=== PATIENT | female | born 1960 | race Caucasian/White ===

== ENCOUNTER 2025-05-06 14:32 | Emergency (ER) | payer SELFPAY ==
[2025-05-06 14:38] VITALS: BP 132/75
--- NOTE | 2025-05-06 15:34 | ED.GENMED ---
History of Present Illness
General
Chief Complaint: Crisis Evaluation
Source: patient
Exam Limitations: none
Time Seen by Provider: 05/06/25 15:06
Nursing documentation reviewed up to this point in time: agreed with
History of Present Illness
History of Present Illness:
64-year-old female history of alcoholism presents via police apparently made gestures that she went to harm herself patient admits to being in alcohol rehab 3 times this year, second and reported that she attempted to jump out a window or down some
steps, she denies any suicidal thoughts to me, states she is not depressed, she is frustrated due to worsening alcohol use, not currently in any therapy, admits to drinking alcohol earlier today
Past History
Past History
ED Past Medical History: Hypercholesterolemia, Psychiatric (Anxiety and depression) and Other (h/o alcohol abuse)
ED Past Surgical History: (3 prior C-sections)
Social History
Tobacco: Smoker
Alcohol: Daily
Drug: None
Personal:
Living: with family
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
Family History
Family History: Other (n/c)
Review of Systems
Review of Systems
All Other Systems: Not applicable
EENT: Reports no symptoms
Respiratory: Reports no symptoms
Cardiac: Reports no symptoms
ABD/GI: Reports no symptoms
: Reports no symptoms
Psychiatric: Reports anxiety; Denies depression or hallucinations
Phy Exam
Physical Exam
Physical Exam:
Physical Exam
General: no apparent distress, not acutely ill
Neck: No jaundice
Heart: Regular
Lungs: no acute respiratory distress. clear bilaterally
Neuro: alert and oriented. no focal neurological deficits
Skin: no rash
Psychiatric: Cooperative, denies suicidal thoughts not hallucinating
Extremities: no edema
Course
Orders/Labs/Results
Orders:
Orders
05/06/25 14:46
Crisis Consult Urgent
Reason for Consult: increased depression
Vital Signs
Initial and Last Documented VS:
Initial Vital Signs
Temp Pulse Resp BP Pulse Ox
98.5 F 104 18 132/75 95
05/06/25 14:38 05/06/25 14:38 05/06/25 14:38 05/06/25 14:38 05/06/25 14:38
Last Documented Vital Signs
Temp Pulse Resp BP Pulse Ox
98.5 F 104 18 132/75 95
05/06/25 14:38 05/06/25 14:38 05/06/25 14:38 05/06/25 14:38 05/06/25 15:36
MDM/Problems Addressed
Differential Diagnosis Includes:
Alcoholism depression anxiety
MDM/Problems Addressed:
Depression anxiety question suicidal
Chronic conditions affecting care: Psychiatric illness
Acute Exacerbation and/or Progression of Chronic Illness: Psychiatric illness
*Pulse Oximetry
SaO2: 95
Oxygen Mode of Delivery: Room air
Patient hypoxic: no
*Critical Care Note
Total Time (30-74mins, 75-104mins- exclusive of procedures): Not Applicable
Update Note
Update Note:
Update 302 apparently was filled out by the will be effective through the delegate keep her in a safety hold in the meantime
5 PM update 302 not upheld patient would like to go home not interested in rehab
ED Attending Note
-
Portions of this chart may have been created with voice recognition software.� Occasional wrong word or��sound alike� substitutions may have occurred due to the inherent limitations of voice recognition software.
Discharge Plan
Departure
Patient Disposition: Home (Routine Discharge)
Date of Disposition: 05/06/25
Time of Disposition: 16:59
Patient with high blood pressure during this ER visit?: No
Condition: Good
Covid-19: Not Applicable
Discharge Problem:
Alcohol abuse
Instructions: Alcohol Use Disorder (DC), Drug and Alcohol Abuse Information
Prescriptions:
No Action
lisinopril 10 MG tablet
10 mg PO DAILY
alprazolam 0.5 MG tablet
0.5 mg PO Q6HPRN PRN (Reason: anxiety) Qty: 10 0RF
pantoprazole 40 mg tablet,delayed release (DR/EC)
40 mg PO DAILY Qty: 30 0RF
Referrals:
UNKNOWN - PT NOT,INTERVIEWE [Family Provider]
Interventions
Interventions:
*Risk Screen - Suicide Last Done: 05/06/25 14:38
*General Assessment Last Done: 05/06/25 14:38
*Neglect/Abuse Screening Last Done: 05/06/25 14:38
ED- Neurological Assessment Last Done: 05/06/25 15:06
ED-Psychological Assessment Last Done: 05/06/25 15:06
Discharge Date and Time
Print Language: [id number]
== END 2025-05-06 18:13 | disposition home or self-care (01) ==
LOC: EMR 14:32
PROVIDERS: EMERGENCY PHYSICIAN Emergency Medicine
DX: F10.20 Alcohol dependence, uncomplicated (principal); F41.9 Anxiety disorder, unspecified; F32.A Depression, unspecified; E78.00 Pure hypercholesterolemia, unspecified; I10 Essential (primary) hypertension; F17.200 Nicotine dependence, unspecified, uncomplicated; Z85.41 Personal history of malignant neoplasm of cervix uteri; Z91.51 Personal history of suicidal behavior; Z87.01 Personal history of pneumonia (recurrent); Z86.16 Personal history of COVID-19; Z88.1 Allergy status to other antibiotic agents; Z88.5 Allergy status to narcotic agent; Z88.0 Allergy status to penicillin; Z88.8 Allergy status to other drugs, medicaments and biological substances
CPT/HCPCS: 99282